=== PATIENT | female | born 1945 | race Caucasian/White ===

== ENCOUNTER 2017-01-07 19:29 | Emergency (ER) | payer OTHER ==
[2017-01-07 19:39] VITALS: BP 106/60; PULSE 55; RESP 16; TEMP 98.4; O2SAT 92
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
== END 2017-01-07 20:04 | disposition home or self-care (01) ==
DX: S09.90XA Unspecified injury of head, initial encounter (principal); W22.8XXA Striking against or struck by other objects, initial encounter

== ENCOUNTER 2017-07-24 18:08 | Inpatient (IN) | payer OTHER ==
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
[2017-07-24 22:00] LABS: PLATELET COUNT 263 10^3/uL (150-400)
[2017-07-24] MEDS ORDERED: ACETAMINOPHEN 500 MG TAB PO PRN (22:13)
[2017-07-24] MEDS ORDERED: HYDROmorphONE/DILAUDID 1 MG/ML INJ IVP PRN (22:13)
[2017-07-24] MEDS ORDERED: ONDANSETRON 4 MG/2 ML VIAL IVP PRN (22:19)
[2017-07-24] MEDS ORDERED: NS W/ 20 KCl/L 1,000 ML IV SCH (22:30)
[2017-07-24] MEDS: HYDROCODONE/APAP 5/325 TAB PO PRN (23:07)
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
[2017-07-25] MEDS ORDERED: NS BOLUS 500 ML (Wide open) IV ONE (01:30)
[2017-07-25] MEDS: HYDROCODONE/APAP 5/325 TAB PO PRN ×2 (04:18→18:34)
[2017-07-25] MEDS ORDERED: NS 500 ML IV ONE (08:19)
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
[2017-07-25] MEDS: GABAPENTIN 100 MG CAP PO SCH ×3 (09:06→21:30)
[2017-07-25] MEDS: METHOCARBAMOL 750 MG TAB PO PRN ×2 (09:07→17:00)
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
[2017-07-25 19:28] VITALS: RESP 15
[2017-07-26 04:25] VITALS: O2SAT 93
[2017-07-26] MEDS: METHOCARBAMOL 750 MG TAB PO PRN (04:41)
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
[2017-07-26 08:03] VITALS: BP 83/68; PULSE 91; TEMP 98
[2017-07-26] MEDS ORDERED: PNEUMOC 13-VAL CONJ-DIP CRM/PF 0.5 ML SYR IM ONE (09:37)
[2017-07-26] MEDS: GABAPENTIN 100 MG CAP PO SCH (09:45)
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
== END 2017-07-26 10:52 | disposition home or self-care (01) | DRG 53 ==
LOC: EDUNIT# → F2N 23:59
PROVIDERS: ADMIT Neurological Surgery; ATTEND Neurological Surgery
PROC: 3E0234Z Introduction of Serum, Toxoid and Vaccine into Muscle, Percutaneous Approach (ICD-10-PCS; principal; 2017-07-24)
DX: S14.0XXA Concussion and edema of cervical spinal cord, initial encounter (principal); S13.4XXA Sprain of ligaments of cervical spine, initial encounter; V43.52XA Car driver injured in collision with other type car in traffic accident, initial encounter; Y92.414 Local residential or business street as the place of occurrence of the external cause; R20.2 Paresthesia of skin; M25.511 Pain in right shoulder; M25.512 Pain in left shoulder; M50.322 Other cervical disc degeneration at C5-C6 level; Z23 Encounter for immunization; Z86.69 Personal history of other diseases of the nervous system and sense organs; Z85.820 Personal history of malignant melanoma of skin; Z88.0 Allergy status to penicillin
CPT/HCPCS: 92523-GN; 97161-GP; 97166-GO; 97535-GO; G0009; G8978-GP-CI; G8979-GP-CI; G8980-GP-CI; G8987-GO-CJ; G8988-GO-CJ; G8989-GO-CJ; G9165-GN-CH; G9166-GN-CH; G9167-GN-CH; L0174